=== PATIENT | female | born 1995 | race African-American/Black ===

== ENCOUNTER 2018-04-25 07:06 | Emergency (ER) | payer OTHER ==
[~2018-04-25] VITALS: Ht 170.2 cm; Wt 105.2 kg
[~2018-04-25 07:06] MED LIST: NAPROSYN500 MG PO; NOHOMEMEDICATIONS
[2018-04-25 07:35] LABS: HEMATOCRIT 31.1 % (37.0-47.0); HEMOGLOBIN 9.8 gm/dL (12.0-15.0); RBC 4.35 mil/uL (4.20-5.00)
[2018-04-25 07:36] LABS: MCH 22.6 pg (26.0-34.0); MCHC 31.6 g/dL (28.0-37.0); MCV 71.4 fL (80.0-100.0); PLATELET COUNT 419 thou/uL (150-400); WBC 7.1 thou/uL (4.0-11.0)
[2018-04-25 07:42] LABS: CALCIUM 9.1 mg/dL (8.5-10.1); CREATININE 0.8 mg/dL (0.6-1.0); POTASSIUM 3.1 mmol/L (3.5-5.1)
[2018-04-25 07:45] LABS: URINE BILIRUBIN NEGATIVE (Negative); URINE BLOOD 3+ (Negative); URINE CLARITY SL CLOUDY; URINE COLOR YELLOW; URINE GLUCOSE-RANDOM* NEGATIVE (Negative); URINE KETONES 1+ (Negative); URINE LEUKOCYTES NEGATIVE (Negative); URINE NITRITE NEGATIVE (Negative); URINE PROTEIN (DIPSTICK) NEGATIVE (Negative); URINE SPECIFIC GRAVITY >= 1.030 (1.005-1.035); URINE UROBILINOGEN 0.2 E.U./dl (0.2-1.0)
[2018-04-25 08:04] LABS: SQUAMOUS >10 Many /LPF (0-3)
[2018-04-25 08:06] LABS: CASTS None Seen /LPF (None Seen); CRYSTALS None Seen /LPF (None Seen)
[2018-04-25 08:07] LABS: URINE RBC 3-10 Few /HPF (0-2)
[2018-04-25 08:08] LABS: URINE WBC 6-15 Few /HPF (0-5)
[2018-04-25 08:12] LABS: ABSOLUTE NEUTROPHILS 3.6 thou/uL (1.4-8.2)
[2018-04-25 08:13] LABS: ANISOCYTOSIS 1+; HYPOCHROMASIA 2+; MICROCYTES 2+
[2018-04-25] MEDS ORDERED: ZOFRAN4 MG PO (08:21)
[2018-04-25 09:17] VITALS: BP 122/83
== END 2018-04-25 09:20 | disposition home or self-care (01) ==
LOC: ER 07:06
PROVIDERS: Student in an Organized Health Care Education/Training Program
DX: K52.9 Noninfective gastroenteritis and colitis, unspecified (principal); E87.6 Hypokalemia; E86.0 Dehydration; R51 Headache

== ENCOUNTER 2018-06-14 15:55 | Emergency (ER) | payer OTHER ==
[~2018-06-14] VITALS: Ht 170.2 cm; Wt 99.8 kg
[~2018-06-14 15:55] MED LIST changes: +ZOFRAN4 MG PO
[2018-06-14 16:27] LABS: URINE BILIRUBIN NEGATIVE (Negative); URINE BLOOD NEGATIVE (Negative); URINE CLARITY CLEAR; URINE COLOR YELLOW; URINE GLUCOSE-RANDOM* NEGATIVE (Negative); URINE KETONES NEGATIVE (Negative); URINE LEUKOCYTES-REFLEX NEGATIVE (Negative); URINE NITRITE-REFLEX NEGATIVE (Negative); URINE PROTEIN (DIPSTICK) NEGATIVE (Negative); URINE SPECIFIC GRAVITY >= 1.030 (1.005-1.035); URINE UROBILINOGEN 0.2 E.U./dl (0.2-1.0)
[2018-06-14 16:39] LABS: ABSOLUTE NEUTROPHILS 5.5 thou/uL (1.4-8.2); BASOPHILS 1.3 % (0.0-2.0); HEMATOCRIT 31.1 % (37.0-47.0); HEMOGLOBIN 9.9 gm/dL (12.0-15.0); LYMPHOCYTES 33.8 % (24.0-44.0); MCHC 31.8 g/dL (28.0-37.0); MCV 69.2 fL (80.0-100.0); MONOCYTES 7.3 % (1.0-8.0); PLATELET COUNT 450 thou/uL (150-400); POLYS 54.6 % (36.0-66.0); RDW 17.4 % (10.5-14.5); WBC 10.1 thou/uL (4.0-11.0)
[2018-06-14 16:47] LABS: CALCIUM 9.2 mg/dL (8.5-10.1); CREATININE 0.8 mg/dL (0.6-1.0); POTASSIUM 3.7 mmol/L (3.5-5.1)
[2018-06-14 17:17] LABS: ANISOCYTOSIS 1+; HYPOCHROMASIA 1+; MICROCYTES 2+; SCHISTOCYTES OCCASIONAL
[2018-06-14] MEDS ORDERED: VITAFOL-OB+DHA1 EACH PO (19:46)
[2018-06-14 20:15] VITALS: BP 137/57
== END 2018-06-14 20:16 | disposition home or self-care (01) ==
LOC: ER 15:55
PROVIDERS: Physician Assistant
DX: O26.891 Other specified pregnancy related conditions, first trimester (principal); O99.011 Anemia complicating pregnancy, first trimester; R10.2 Pelvic and perineal pain; Z3A.00 Weeks of gestation of pregnancy not specified